=== PATIENT | female | born 1995 | race Caucasian/White ===

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

== ENCOUNTER 2022-08-13 18:45 | Inpatient (IN) ==
[2022-08-13] MEDS ORDERED: LIDOCAINE 1% LOCAL 20 ML VIAL INFIL PRN (19:13)
[2022-08-13] MEDS ORDERED: OXYTOCIN 30 UNITS/500 ML BAG IV PRN (19:13)
--- NOTE | 2022-08-13 19:22 | History & Physical Report ---
Date of Service August 13, 2022 Assessment & Plan (1) Normal labor: Plan: Admit, epidural requested and will be provided, manage expectantly for now as patient making significant progress despite toco only Q5m. May ultimately require augmentation; time will tell. Admission and Anticipated Discharge Date Admission Date: August 13, 2022 History of Present Illness Primary Care Provider: NO PCP 27yo at 39w3d with c/o contractions Q5 x 1 hour. No lof, no VB, good FM. Preg c/b known h/o asthma, gallstones. Allergies Allergy/AdvReac Type Severity Reaction Status Date / Time animal dander Allergy Intermediate exacerbation Verified 08/11/22 13:48 asthma mold Allergy Intermediate exacerabation Verified 08/11/22 13:48 of asthma tree nut Allergy Intermediate Swelling Verified 08/11/22 13:48 of Lip/Tongue/Throat seasonal allergies Allergy Intermediate exacerbation Uncoded 07/25/22 13:55 asthma No Known Drug Allergies Allergy Unknown Uncoded 07/25/22 13:55 Home Medications Medication Instructions Recorded Confirmed Type albuterol sulfate 90 mcg/actuation 2 puff inhalation Q4H PRN 11/28/21 08/13/22 Rx aerosol inhaler (ProAir HFA) shortness of breath or wheezing #18 grams PNV no.[id number] 1 tab PO UD 03/03/22 08/13/22 History [ Gummies] budesonide-formoterol HFA 160 2 puff inhalation BID #1 inhaler 03/16/22 08/13/22 Rx mcg-4.5 mcg/actuation aerosol inhaler (Symbicort) ferrous sulfate 325 mg (65 mg 325 mg PO DAILY 06/07/22 08/13/22 History iron) tablet Patient History Medical History Asthma Varicella vaccination Surgical History History of mandibular surgery S/P wisdom tooth extraction Family History Mother Asthma Allergic rhinitis Grandfather (Maternal) Lung cancer Grandmother (Paternal) Dementia Denies family history of Ovarian cancer Prostate cancer Breast cancer Colorectal cancer Social History Smoking Status: Former smoker Tobacco Type: Cigarettes Second Hand Exposure: No; Hx Alcohol Use: Yes Hx Substance Use: No Preferred Language: Sinhala Communication Ability: Effective Visual Impairment: No Limitations Hearing Ability: Normal Boat Wrapper Required: No Beliefs That Will Affect Care: None marital status: Single marital status details: Juan Antonio Costa (35) [phone] Current Living Situation: Family and Significant Other Current Living Situation Comment: [facility] NO pets current occupational status: employed 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 Soon changed to Cat 1 with accels noted. [place] Q5-6min. Cvx 5/100/-1 Vtx presentation, membranes intact Results & Data Vital Signs (Past 12 Hours) Vital Signs Temp Resp 08/13/22 19:00 98.6 F 20 Coding Level of Care Code None Diagnoses Normal labor O80; Z37.9
[2022-08-13] MEDS: LACTATED RINGER'S 1,000 ML IV PRN ×2 (19:23→20:47)
[2022-08-13] MEDS ORDERED: diphenhydrAMINE 50 MG/ML VIAL IV PRN (19:41)
[2022-08-13] MEDS ORDERED: NALOXONE HCL 1 MG in SODIUM CHLORIDE 0.9% 1000ML 1,000 ML IV PRN (19:41)
[2022-08-13] MEDS ORDERED: NALBUPHINE HCL INJ 10 MG/ML AMP IV PRN (19:41)
[2022-08-13] MEDS ORDERED: fentaNYL 2MCG/ML ROPIVACAINE 1.25MG/ML 100 ML BAG EPI PRN (19:41)
[2022-08-13] MEDS ORDERED: ePHEDrine sulfate 50 MG/ML AMP IV PRN (19:41)
[2022-08-13] MEDS ORDERED: NALOXONE HCL 0.4 MG/1 ML VIAL/CARP IV PRN (19:41)
--- NOTE | 2022-08-13 19:41 | Anesthesiology Consultation ---
Date of Service August 13, 2022 Assessment & Plan (1) Encounter for pre-operative examination: Chart Review Chart Review: Patient NOT seen in Pre Admission Testing and Acceptable Risk for Labor Epidural Consults Requested none History Height/Weight Height: 5 ft 4 in Weight: 88.178 kg Allergies Allergy/AdvReac Type Severity Reaction Status Date / Time animal dander Allergy Intermediate exacerbation Verified 08/11/22 13:48 asthma mold Allergy Intermediate exacerabation Verified 08/11/22 13:48 of asthma tree nut Allergy Intermediate Swelling Verified 08/11/22 13:48 of Lip/Tongue/Throat seasonal allergies Allergy Intermediate exacerbation Uncoded 07/25/22 13:55 asthma No Known Drug Allergies Allergy Unknown Uncoded 07/25/22 13:55 Medications Home Medications Medication Instructions Recorded Confirmed Last Taken albuterol sulfate 90 mcg/actuation 2 puff inhalation Q4H PRN 11/28/21 08/13/22 08/13/22 16:00 aerosol inhaler (ProAir HFA) shortness of breath or wheezing #18 grams PNV no.[id number] 1 tab PO UD 03/03/22 08/13/22 08/12/22 [ Gummies] budesonide-formoterol HFA 160 2 puff inhalation BID #1 inhaler 03/16/22 08/13/22 08/13/22 09:00 mcg-4.5 mcg/actuation aerosol inhaler (Symbicort) ferrous sulfate 325 mg (65 mg 325 mg PO DAILY 06/07/22 08/13/22 08/09/22 iron) tablet Active Medications Generic Name Dose Route Start Last Admin Trade Name Freq PRN Reason Stop Dose Admin Lactated Ringer's 1,000 mls @ 125 mls/hr 08/13/22 19:13 08/13/22 19:23 Lr IV 08/15/22 19:12 999 mls/hr .Q8H PRN Administration L&D Protocol Protocol Past Medical History Medical History Asthma Varicella vaccination Past Family History Family History Mother Asthma Allergic rhinitis Grandfather (Maternal) Lung cancer Grandmother (Paternal) Dementia Denies family history of Ovarian cancer Prostate cancer Breast cancer Colorectal cancer Past Surgical History Surgical History History of mandibular surgery S/P wisdom tooth extraction Social History Smoking Status: Former smoker tobacco type: e-cigarettes Hx Alcohol Use: Yes Hx Substance Use: No Physical Exam Vital Signs Last Vital Signs Temp 98.6 F 08/13/22 19:00 Pulse 89 08/13/22 19:36 Resp 20 08/13/22 19:00 BP 108/63 08/13/22 19:25 Pulse Ox 99 08/13/22 19:36
[2022-08-13 19:44] LABS: Hematocrit (blood only) 30.6 % (37.0-47.0); Hemoglobin 9.5 g/dl (12.0-16.0); Mean Corpuscular Hemoglobin 23.5 pg (25.0-34.0); Mean Corpuscular Volume 75.7 fL (80.0-100.0); Mean Platelet Volume 10.5 fL (9.4-12.4); Platelet Count 348 K/uL (130-400); RDW Coefficient of Variation 15.8 % (11.5-14.5); RDW Standard Deviation 43.4 fL (36.4-46.3); Red Blood Count 4.04 M/uL (4.20-5.40); White Blood Count 14.96 K/ul (4.8-10.8)
[2022-08-13] MEDS ORDERED: ePHEDrine sulfate 50 MG/ML AMP ONE (19:51)
[2022-08-13] MEDS ORDERED: fentaNYL 2MCG/ML ROPIVACAINE 1.25MG/ML 100 ML BAG EPI ONE (19:52)
[2022-08-13] MEDS ORDERED: BUPIVACAINE 0.25% PF 30 ML VIAL ONE (19:52)
[2022-08-13] MEDS ORDERED: SODIUM CHLORIDE 0.9% PF INJ 10 ML VIAL ONE (19:52)
[2022-08-13] MEDS ORDERED: LIDOCAINE 2%/EPINEPHRINE 1:200,000 20 ML PF ONE (19:52)
[2022-08-13] MEDS ORDERED: fentaNYL citrate PF 100 MCG/2 ML VIAL ONE (19:52)
--- NOTE | 2022-08-13 22:45 | Labor Progress Brief Note ---
Date of Service August 13, 2022 Subjective Feeling pressure Assessment & Plan (1) Normal labor: Plan: progressing well, anticipate Admission and Anticipated Discharge Date Admission Date: August 13, 2022 Physical Exam Genitourinary: 9100/+1 AROM clear Results & Data Vital Signs (Past 12 Hours) Vital Signs Temp Pulse Resp BP Pulse Ox 08/13/22 19:00 98.6 F 20 08/13/22 22:42 94 H 98 08/13/22 22:41 93 H 114/86 08/13/22 22:37 91 H 100 08/13/22 22:32 92 H 100 08/13/22 22:27 107 H 98 08/13/22 22:24 120 H 114/71 08/13/22 22:21 100 H 98 08/13/22 22:16 111 H 97 08/13/22 22:11 103 H 98 08/13/22 22:10 113 H 124/69 08/13/22 22:06 102 H 99 08/13/22 22:00 18 08/13/22 22:00 18 08/13/22 22:01 104 H 99 08/13/22 21:56 101 H 98 08/13/22 21:54 97 H 107/66 08/13/22 21:51 106 H 96 08/13/22 21:46 103 H 97 08/13/22 21:41 104 H 97 08/13/22 21:36 96 08/13/22 21:36 101 H 08/13/22 21:36 93 H 105/58 L 08/13/22 21:30 18 08/13/22 21:30 18 08/13/22 21:31 96 08/13/22 21:31 95 H 08/13/22 21:31 90 104/55 L 08/13/22 21:26 102 H 104/59 L 97 08/13/22 21:21 97 08/13/22 21:21 93 H 08/13/22 21:21 88 102/56 L 08/13/22 21:16 97 08/13/22 21:16 100 H 08/13/22 21:16 93 H 102/55 L 08/13/22 21:10 18 08/13/22 21:10 18 08/13/22 21:11 97 08/13/22 21:11 88 08/13/22 21:11 90 106/55 L 08/13/22 21:06 98 08/13/22 21:06 100 H 08/13/22 21:06 100 H 103/56 L 08/13/22 21:01 98 08/13/22 21:01 84 08/13/22 21:01 86 104/55 L 08/13/22 20:56 91 H 110/57 L 99 08/13/22 20:40 18 08/13/22 20:40 18 08/13/22 20:55 20 08/13/22 20:55 20 08/13/22 20:52 93 H 107/70 08/13/22 20:51 94 H 100 08/13/22 20:46 99 08/13/22 20:46 98 H 08/13/22 20:46 88 113/55 L 08/13/22 20:41 98 08/13/22 20:41 117 H 08/13/22 20:41 113 H 108/63 08/13/22 20:36 99 08/13/22 20:36 125 H 08/13/22 20:36 107 H 98/55 L 08/13/22 20:31 99 08/13/22 20:31 133 H 08/13/22 20:31 123 H 101/59 L 08/13/22 20:27 101 H 122/70 08/13/22 20:26 105 H 100 08/13/22 20:20 18 08/13/22 20:20 18 08/13/22 20:25 18 08/13/22 20:25 18 08/13/22 20:21 98 H 99 08/13/22 20:19 112 H 103/56 L 08/13/22 20:16 100 H 99 08/13/22 20:17 97 H 107/60 08/13/22 20:15 111 H 20 104/56 L 08/13/22 20:13 114 H 108/59 L 08/13/22 20:11 100 08/13/22 20:11 98 H 08/13/22 20:11 93 H 150/64 H 08/13/22 20:06 100 H 97 08/13/22 20:01 104 H 96 08/13/22 19:56 96 H 100 08/13/22 19:51 98 H 100 08/13/22 19:46 101 H 96 03/26/23 19:41 93 H 100 08/13/22 19:36 89 99 08/13/22 19:31 87 99 08/13/22 19:26 96 H 99 08/13/22 19:25 94 H 108/63 08/13/22 19:21 99 H 94 Coding Level of Care Code None Diagnoses Normal labor O80; Z37.9
[2022-08-13] MEDS ORDERED: NURSING L&D Epidural Breakthrough Pain Update ONE (22:52)
--- NOTE | 2022-08-14 00:25 | Delivery Summary ---
Vaginal Delivery Summary Date of Service August 14, 2022 Vaginal Delivery Summary DIAGNOSES: 1. Thurman intrauterine at 39w4d gestation. 2. Spontaneous onset of labor. 3. Group B Streptococcus Neg. PROCEDURE: Spontaneous vaginal delivery and repair of 1st degree laceration. SURGEON: Nidhi Harris MD. 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 ESTIMATED BLOOD LOSS: 400 mL. COMPLICATIONS: None. PLACENTA: Spontaneous and intact with a 3-vessel cord. DISPOSITION: Stable to labor and delivery. DESCRIPTION: The patient pushed well and brought the head to in DOA position. The infant's head was allowed to deliver with contraction force and no further active pushing, with the perineum protected during this time. There was no nuchal cord. The right shoulder was anterior. The shoulders and body delivered without any difficulty, and the was placed on the maternal abdomen. It was vigorous and moving all extremities, and making respiratory efforts. The cord was doubly clamped by the MD and then cut. The placenta delivered spontaneously and was noted to be intact and with a 3VC. The cervix, vagina and perineum were examined and were found to have a 1st degree laceration which was repaired with vicryl in running locked fashion. The fundus was firm and lochia minimal immediately after delivery. [facility] Vaginal Delivery Charge Vaginal Delivery Codes: 86894 global code for the antepartum, delivery, and post-
[2022-08-14] MEDS ORDERED: ACETAMINOPHEN 325 MG TAB PO PRN (00:35)
[2022-08-14] MEDS ORDERED: DIPHTHERIA/TETANUS/PERTUSSIS 0.5mL SYR/VIAL (Age 7+yrs) IM ONE (00:35)
[2022-08-14] MEDS ORDERED: MEASLES, MUMPS & RUBELLA VIRUS VIAL SQ ONE (00:35)
[2022-08-14] MEDS ORDERED: oxyCODONE/ACETAMINOPHEN 5mg/325mg TAB PO PRN (00:35)
[2022-08-14] MEDS ORDERED: BENZOCAINE 20% AER SPR 82.5 GM CAN EXT PRN (00:35)
[2022-08-14] MEDS ORDERED: HYDROCORTISONE ACETATE 25 MG SUPP PR PRN (00:35)
[2022-08-14] MEDS: IBUPROFEN 600 MG TAB PO PRN ×2 (03:23→19:34)
--- NOTE | 2022-08-14 03:48 | Anesthesia Procedure Note ---
Date of Service August 14, 2022 Anesthesia Post Epidural Note Vital Signs Vital Signs: Temp Pulse Resp BP Pulse Ox O2 Del Method 98.6 F 101 H 18 97/60 L 99 Room Air 08/14/22 03:12 08/14/22 03:12 08/14/22 03:12 08/14/22 03:12 08/14/22 03:12 08/14/22 03:12 Pain Intensity Bilateral Perineal: Pain Intensity: 5 Notes Mental Status: alert / awake / arousable and participated in evaluation Nausea / Vomiting: adequately controlled Pain: adequately controlled Airway Patency, RR, SpO2: stable & adequate BP & HR: stable & adequate Hydration State: stable & adequate Neuraxial Anesthesia: was administered and sensory block is resolving Anesthetic Complications: no major complications apparent and Pt Satisfied with anesthetic care Epidural: Removed without complications and With tip intact
[2022-08-14] MEDS: DOCUSATE SODIUM 100 MG CAP PO SCH ×2 (07:48→19:35)
[2022-08-14] MEDS: PRENATAL VITAMIN 1 TAB PO SCH (07:48)
--- NOTE | 2022-08-15 05:47 | Obstetrical Progress Note ---
Date of Service <Harriett WorkmanDO - Last Filed: 08/15/22 06:38> August 15, 2022 Assessment & Plan <Harriett WorkmanDO - Last Filed: 08/15/22 06:38> (1) Status post vaginal delivery: Feels well today. Eating well, voiding well, ambulating well. - Routine care -- OOB, ambulation, diet progression as tolerated - After discharge will have 6 week follow-up <Odalis Penn MD, FACOG - Last Filed: 08/15/22 07:37> (1) Status post vaginal delivery: Subjective <Harriettpaul WorkmanDO - Last Filed: 08/15/22 06:38> Pema is a 27 y/o female who is now PPD # 1 following vaginal delivery at 39 4/7 weeks. Reports feeling well overall this morning. Mild abdominal cramping, pain well managed on analgesics. Voiding. Tolerating meals overnight and able to ambulate some. Some persistent lochia with some improvement this morning. Bottle feeding. Review of Systems Denies fever, chills, sweats Denies shortness of breath, difficulty breathing, chest pain, palpitations, chest pressure. Denies breast pain. Denies dysuria. Denies headache or changes in vision. Physical Exam <Harriettpaul WorkmanDO - Last Filed: 08/15/22 06:38> General: Alert, oriented. No acute distress. Cardiac: Regular rate and rhythm, no murmurs/rubs/gallops. Respiratory: Clear to auscultation bilaterally a/p, no wheezes/rales/rhonchi. No increased work of breathing. Symmetrical chest rise. No respiratory distress. Abdomen: Soft, nontender, nondistended. Uterus: Uterine fundus firm, palpable 2 cm below umbilicus. Lower Extremities: No lower extremity edema or swelling. No deep calf pain. Results & Data <Harriett SLaila Workman DO - Last Filed: 08/15/22 06:38> Vital Signs (Past 12 Hours) Vital Signs Temp Pulse Resp BP Pulse Ox O2 Del Method 08/15/22 04:20 36.7 C 89 18 112/69 96 Room Air 08/15/22 00:20 36.5 C 92 H 18 107/62 98 Room Air 08/14/22 19:25 37.1 C 96 H 18 109/67 98 Room Air <Odalis Penn MD, FACOG - Last Filed: 08/15/22 07:37> Co-Signing Physician Notes Resident Physician Supervision Note: I was present with Dr. Workman during the history and exam. I discussed the case with the resident and agree with the findings and plan as documented in the note. Any exceptions or clarifications are listed here: [None] Documented By: Odalis Penn MD, FACOG Resident Activity Tracking <Harriett Workman DO - Last Filed: 08/15/22 06:38> Resident Involvement: Resident Care Provided Care Provided: OB Delivery (post )
[2022-08-15 06:37] LABS: Hemoglobin 8.7 g/dl (12.0-16.0); Mean Corpuscular Hemoglobin 23.8 pg (25.0-34.0); Mean Corpuscular Hgb Conc 31.1 g/dL (32.0-36.0); Mean Corpuscular Volume 76.7 fL (80.0-100.0); Mean Platelet Volume 11.1 fL (9.4-12.4); Platelet Count 290 K/uL (130-400); Red Blood Count 3.65 M/uL (4.20-5.40); White Blood Count 16.51 K/ul (4.8-10.8)
[2022-08-15] MEDS: DOCUSATE SODIUM 100 MG CAP PO SCH (08:24)
[2022-08-15] MEDS: PRENATAL VITAMIN 1 TAB PO SCH (08:24)
== END 2022-08-15 12:30 | disposition home or self-care (01) | DRG 807 ==
LOC: OPB 18:45 → 4S1 18:46 → 4E2 08-14 03:18